=== PATIENT | female | born 1995 | race Caucasian/White ===

== ENCOUNTER 2016-08-20 15:47 | Emergency (ER) | payer OTHER ==
[~2016-08-20] VITALS: Ht 170.2 cm; Wt 48.4 kg
[~2016-08-20 15:47] MED LIST: IBUPROFEN800 MG PO; IRON325 M1 PO; PRENATAL VITAM1 EAC2 PO; ULTRAM50 MG PO; ZOFRAN4 MG PO
[2016-08-20 16:43] LABS: HEMATOCRIT 35.8 % (36.0-46.0); MCH 28.5 PG (29.0-34.0); MCV 86.5 FL (83-99); MEAN PLAT.VOLUME 10.3 uM^3 (9.5-12.4); PLATELET COUNT 358 K/uL (156-360); RBC DIS.WIDTH-SD 38.5 % (39-53); RED BLOOD COUNT 4.14 M/uL (3.80-5.20); WHITE BLOOD COUNT 10.9 K/uL (4.1-10.2)
[2016-08-20] MEDS ORDERED: NUVARING VAGIN1 EACH VG (16:46)
[2016-08-20 16:52] LABS: CHLORIDE 107 mEq/L (99-109); POTASSIUM 3.2 mEq/L (3.7-5.4); SODIUM 140 mEq/L (136-147)
[2016-08-20 16:54] LABS: GLUCOSE 94 mg/dL (70-99)
[2016-08-20 16:55] LABS: ANION GAP 12 MEQ/L (2-14)
[2016-08-20 16:56] LABS: TOTAL BILIRUBIN 0.6 mg/dL (0.0-1.0)
[2016-08-20 16:57] LABS: ALKALINE PHOSPHATASE 75 IU/L (3-129)
[2016-08-20 16:58] LABS: GFR ESTIMATE (CALCULATED) > 59 mL/min/
[2016-08-20 16:59] LABS: UREA NITROGEN (BUN) 7 mg/dL (9-23)
[2016-08-20 17:01] LABS: LIPASE 5 U/L (1.0-51.0)
[2016-08-20 17:07] LABS: QUANTITATIVE HCG < 4.0 MIU/ML
[2016-08-20 18:06] LABS: ADD MIUA? YES; BILIRUBIN SMALL; BLOOD NEGATIVE; COLOR AMBER ((YELLOW)); GLUCOSE (STRIP) NEGATIVE; KETONES 20; LEUKOCYTES NEGATIVE; NITRITE NEGATIVE; PROTEIN (STRIP) 100; SPECIFIC GRAVITY 1.033 (1.000-1.030)
[2016-08-20 18:35] LABS: EPITHELIAL CELLS 1+ /HPF; RED BLOOD CELLS 0-5 /HPF (0-5)
[2016-08-20 18:36] LABS: BACTERIA 1+ /HPF; MUCUS 4+ /LPF; UCUL ADDED? NO
[2016-08-20] MEDS ORDERED: COMPAZINE10 MG PO (19:25)
[2016-08-20] MEDS ORDERED: TESSALON PERLE100 MG PO (19:25)
[2016-08-20 19:44] VITALS: BP 103/57
== END 2016-08-20 19:50 | disposition home or self-care (01) ==
LOC: EME 15:47
DX: R11.2 Nausea with vomiting, unspecified (principal); E86.0 Dehydration; M79.7 Fibromyalgia; A69.20 Lyme disease, unspecified; Z87.891 Personal history of nicotine dependence
CPT/HCPCS: 80053; 81003; 83690; 84702; 85027; 94640; 99281; 99285; J0780; J1885; J7030